=== PATIENT | male | born 1970 | race African-American/Black ===

== ENCOUNTER 2020-01-08 10:24 | Inpatient (IN) | payer OTHER ==
[2020-01-29 12:58] VITALS: BMI 57.7
[2020-02-01] MEDS ORDERED: Heparin 5,000 UNITS/ML VIAL ONE (12:15)
[2020-02-01] MEDS ORDERED: Ketorolac Tromethamine 30 MG/ML VIAL ONE (12:28)
[2020-02-01] MEDS ORDERED: Dexamethasone 20 MG/5 ML VIAL ONE (12:28)
[2020-02-01] MEDS ORDERED: PROPOFOL 200 MG/20 ML VIAL ONE (12:28)
[2020-02-01] MEDS ORDERED: Lidocaine 1% PF 5 ML VIAL ONE (12:28)
[2020-02-01] MEDS ORDERED: Rocuronium Bromide 10 MG/ML (10ML VIAL) ONE (12:28)
[2020-02-01] MEDS ORDERED: Glycopyrrolate 0.2 MG/ML 5 ML SYRINGE ONE (12:28)
[2020-02-01] MEDS ORDERED: Ondansetron PF 4 MG/2 ML Vial ONE (12:28)
[2020-02-01] MEDS ORDERED: Lidocaine 1% w/Epinephrine 1:100K 20 ML VIAL ONE (13:17)
[2020-02-01] MEDS ORDERED: Bupivacaine 0.25% HCL 30 ML VIAL ONE (13:17)
[2020-02-01] MEDS ORDERED: Fentanyl 100 MCG/2 ML VIAL ONE ×3 (13:22→16:02)
[2020-02-01] MEDS ORDERED: Lidocaine 2% Jelly 5 ML TUBE ONE (13:22)
[2020-02-01] MEDS ORDERED: HYDROmorphone 2 MG/ML VIAL SLOW IVP PRN (15:30)
[2020-02-01] MEDS ORDERED: Promethazine HCl 25 MG/ML VIAL SLOW IVP PRN (15:30)
[2020-02-01] MEDS ORDERED: Ondansetron HCl/PF 4 MG/2 ML Vial IVP PRN (15:30)
[2020-02-01] MEDS ORDERED: Promethazine HCl 25 MG/ML VIAL IM PRN ×3 (15:30→16:00)
[2020-02-01] MEDS ORDERED: Ondansetron PF 4 MG/2 ML Vial IVP PRN ×2 (15:33→16:00)
[2020-02-01] MEDS ORDERED: Dextrose 5% in Water 1,000 ML IV PRN (15:33)
[2020-02-01] MEDS ORDERED: Dextrose 50% Abboject 50 ML SYRINGE SLOW IVP PRN (15:33)
[2020-02-01] MEDS ORDERED: diphenhydrAMINE 50 MG/ML VIAL IVP PRN (15:33)
[2020-02-01] MEDS ORDERED: hydrALAZINE 20 MG/ML VIAL SLOW IVP PRN (15:33)
[2020-02-01] MEDS ORDERED: Methimazole 10 MG TAB PO SCH (15:33)
[2020-02-01] MEDS ORDERED: Hydrocodone-Acetamin 15 ML UDCUP PO PRN (15:33)
[2020-02-01] MEDS ORDERED: D5 1/2 NS w/20 mEq KCL 1,000 ML IV SCH (15:33)
[2020-02-01] MEDS ORDERED: diphenhydrAMINE 50 MG/ML VIAL IM/IV PRN (16:00)
[2020-02-01] MEDS ORDERED: Morphine Sulfate 100 MG in Dextrose 5% in Water 98 ML IV SCH (16:00)
[2020-02-01] MEDS ORDERED: diphenhydrAMINE 25 MG CAP PO PRN (16:00)
[2020-02-01] MEDS ORDERED: Labetalol HCl 100 MG/20 ML VIAL ONE (16:46)
[2020-02-01] MEDS ORDERED: hydrALAZINE 20 MG/ML VIAL ONE (17:09)
[2020-02-01] MEDS ORDERED: Ketorolac Tromethamine 30 MG/ML VIAL IVP SCH (18:00)
--- NOTE | 2020-02-01 19:37 | OP ---
DATE OF PROCEDURE: 02/01/2020 PREOPERATIVE DIAGNOSES: 1. Morbid obesity with a body mass index of 59. 2. Hypertension. POSTOPERATIVE DIAGNOSES: 1. Morbid obesity with a body mass index of 59. 2. Hypertension. PROCEDURE PERFORMED: 1. Laparoscopic sleeve gastrectomy with Ethicon reinforcement strips. 2. EGD ANESTHESIA: General. ESTIMATED BLOOD LOSS: Minimal. COMPLICATIONS: None. SPECIMEN: Stomach. FINDINGS: Normal postoperative EGD. DESCRIPTION OF PROCEDURE: The patient was taken to the operating room and laid supine on the operating room stable. After general anesthetic was obtained, arms and legs were double strapped to bariatric table. The abdomen was shaved, prepped and draped in a sterile fashion. There was difficulty with placement of the 38 bougie and multiple attempts were unsuccessful, so the EGD scope, which compared to the 36-Macedonian bougie, was passed under direct vision into the antrum of the stomach. The surgeon was then scrubbed in. Left subcostal Optiview trocar was placed in usual fashion without injury and high-flow pneumoperitoneum was obtained. Left and right abdominal 12 mm ports as well as right subcostal 5 mm port were placed under direct visualization. A 5 mm incision was made at the xiphoid and then Aniya was used to raise the liver off the GE junction. Short gastrics were taken down midbody of stomach to left nat of diaphragm. Left nat, posterior fundus, and angle of His were completely dissected. Short gastrics were taken down to a distance of 6 cm proximal to the pylorus. This EGD scope was advanced by anesthesia to the antrum. The light and insufflation had been turned off. First fire, the stapler was a green load, fired up at a distance of 6 cm proximal to the pylorus, and angled up towards the incisura. Care was taken to avoid being too close to the incisura. Multiple gold loads were then fired with Ethicon reinforcement strips all the way to the angle of His. Care was taken to not get too close to the EGD scope, which was used as a bougie. Stomach was completely transected at the angle of His. The stomach was removed from the left abdominal incision. This fascial defect was closed using GraNee needle and 0-Vicryl tie. The EGD scope was then connected and an insufflation was performed of the inside of the stomach, and the light was turned on. EGD scope revealed no stricture at the incisura and a good staple line without leak or bleeding. No involvement of the GE junction. No stricture. No stenosis of the sleeve. EGD scope was used to decompress the stomach. It was pulled and removed. There were no bleeders on the staple line and there was no bleeding in the abdomen. All port sites were infiltrated using local anesthetic. The Aniya retractor was removed under direct visualization without bleeding. All ports were removed under direct visualization without bleeding. Pneumoperitoneum was let down. Vicryl was used to close the fascial defect from the left abdominal incision. All incisions were irrigated and closed using 4-0 Monocryl and Dermabond. The patient was sent to Recovery in stable condition. All instrument counts, needle counts, and lap counts were correct. Job ID: [id number] MTDD
[2020-02-01] MEDS ORDERED: cloNIDine 0.1 MG TAB PO PRN (20:47)
[2020-02-01] MEDS ORDERED: Labetalol HCl 100 MG/20 ML VIAL SLOW IVP PRN (20:47)
[2020-02-01] MEDS ORDERED: Enoxaparin Sodium 40 MG/0.4 ML SYRINGE SC SCH (21:00)
[2020-02-01] MEDS: Ketorolac Tromethamine 30 MG/ML VIAL IVP SCH (21:54)
[2020-02-02] MEDS: Ketorolac Tromethamine 30 MG/ML VIAL IVP SCH ×2 (03:33→09:41)
[2020-02-02 05:34] LABS: #Lymphocytes 1.1 thou/uL (1.20-3.40); #Monocytes 0.5 thou/uL (0.11-0.59); #Neutrophils 8.7 thou/uL (1.40-6.50); %Basophils 0.2 % (0.0-1.0); %Eosinophils 0.1 % (0.0-10.0); %Lymphocytes 10.7 % (21.0-51.0); %Monocytes 5.2 % (0.0-10.0); %Neutrophils 83.9 % (42.0-75.0); Hemoglobin 13.6 g/dL (14.0-18.0); Mean Corpuscular HGB CONC 31.6 g/dL (32.0-36.0); Mean Corpuscular Hemoglobin 26.2 pg (27.0-31.0); Mean Corpuscular Volume 82.7 fL (78.0-98.0); Mean Platelet Volume 10.4 fL (7.4-10.4); Platelet Count 212 thou/uL (130-400); RBC Distribution Width 13.8 % (11.5-14.5); Red Blood Cell (RBC) Count 5.19 mill/uL (4.70-6.10); White Blood Cell (WBC) Count 10.3 thou/uL (4.8-10.8)
[2020-02-02 06:01] LABS: Anion Gap 15 mmol/L (10-20); BUN (Urea Nitrogen) 14 mg/dL (8.4-25.7); Calc. Creatinine Clearance 187 mL/min (70-130); Calcium 8.7 mg/dL (7.8-10.44); Carbon Dioxide 22 mmol/L (22-29); Chloride 104 mmol/L (98-107); Estimated GFR-MDRD 70; Glucose 126 mg/dL (70-105); Potassium 4.7 mmol/L (3.5-5.1); Sodium 136 mmol/L (136-145)
--- NOTE | 2020-02-02 06:52 | PDOC.GSPN ---
Surgery Progress Note: Subj - Subjective Patient reports: no new complaints, pain well controlled, tolerating liquids wel l Narrative: Mr. Kelly is a 49 year old male with a past medical history of hypertension and morbid obesity (BMI of 59), is post op day 1 from a laparoscopic sleeve gastrec kim. He reports feeling ok and has been up and walking. He had some nausea yesterday and vomited once, but this has since resolved. He is tolerating liquids well. He has passed gas but has not had a bowel movement. His pain is well controlled and is around a 3/10. He denies feeling feverish or having chills. Surgery Progress Note: Obj - Vital signs Vital signs: Vital Signs - Most Recent Temp Pulse Resp BP Pulse Ox 99.6 F 81 18 120/78 96 02/02/20 00:47 02/02/20 00:47 02/02/20 00:47 02/02/20 00:47 02/02/20 00:47 - Physical Exam General: no distress, obese Cardiovascular: regular rate and rhythm, no murmur Respiratory: clear to auscultation, breath sounds present Abdomen: soft, non tender, nondistended, positive bowel sounds Psychiatric: oriented to time, oriented to person, oriented to place, speech is normal Wound: healing well Surgery Progress Note: Results - Labs Result Diagrams: 02/02/20 04:54 02/02/20 04:54 Lab results: Laboratory Results - last 24 hr 02/02/20 02/02/20 04:54 04:54 WBC 10.3 RBC 5.19 Hgb 13.6 L Hct 42.9 MCV 82.7 MCH 26.2 L MCHC 31.6 L RDW 13.8 Plt Count 212 MPV 10.4 Neutrophils % 83.9 H Lymphocytes % 10.7 L Monocytes % 5.2 Eosinophils % 0.1 Basophils % 0.2 Neutrophils # 8.7 H Lymphocytes # 1.1 L Monocytes # 0.5 Eosinophils # 0.0 Basophils # 0.0 Sodium 136 Potassium 4.7 Chloride 104 Carbon Dioxide 22 Anion Gap 15 BUN 14 Creatinine 1.31 H Estimated GFR (MDRD) 70 Glucose 126 H Calcium 8.7 Surgery Progress Note: A/P - Problem (1) Status post laparoscopic sleeve gastrectomy Current Visit: Yes Code(s): Z98.84 - BARIATRIC SURGERY STATUS Status: Acute (2) Obesity Current Visit: Yes Code(s): E66.9 - OBESITY, UNSPECIFIED Status: Chronic - Plan Plan: I discussed with Mr. Kelly about going home today or stay another day, and he reports that he is feeling well enough to go home today. Pain and nausea under control with current medications. Continue to encourage him to ambulate, and will discuss potential discharge today.
[2020-02-02] MEDS ORDERED: cloNIDine 0.1 MG TAB PO SCH (09:00)
[2020-02-02] MEDS ORDERED: Pantoprazole 40 MG VIAL IVP SCH (09:00)
[2020-02-02 11:46] VITALS: BP 138/94; TEMP 97.5
--- NOTE | 2020-02-03 03:28 | DIS ---
DATE OF ADMISSION: 02/01/2020 DATE OF DISCHARGE: 02/02/2020 ADMITTING DIAGNOSES: Morbid obesity and hypertension. DISCHARGE DIAGNOSES: Morbid obesity and hypertension. PROCEDURE PERFORMED: Laparoscopic sleeve by Sade without complication. CONDITION ON DISCHARGE: Improved. STAFF: Sade. HOSPITAL COURSE: On postop day 1, the patient is doing well. He has tried a liquid diet without difficulty. He is ambulatory. No shortness of breath. He is discharged home today. He is to follow up in 2 weeks. He will call my office with any issues. Prescriptions for Lortab, elixir, Zofran, and pantoprazole already sent to his pharmacy. Job ID: [id number]
== END 2020-02-02 13:10 | disposition home or self-care (01) | DRG 621 ==
LOC: SURG A 02-01 10:45
PROVIDERS: ADMIT Surgery; ATTEND Surgery
PROC: 0DB64Z3 Excision of Stomach, Percutaneous Endoscopic Approach, Vertical (ICD-10-PCS; principal; 2020-02-01)
PROC: 0DJ08ZZ Inspection of Upper Intestinal Tract, Via Natural or Artificial Opening Endoscopic (ICD-10-PCS; 2020-02-01)
DX: E66.01 Morbid (severe) obesity due to excess calories (principal); Z68.43 Body mass index [BMI] 50.0-59.9, adult; I10 Essential (primary) hypertension; Z79.899 Other long term (current) drug therapy
CPT/HCPCS: 36415; 80048; 85025; 88307; 88312; 94760; C9113; J0360; J0690; J1644; J1650; J1885; J3010; J3480; S0020

== ENCOUNTER 2020-01-29 05:59 | Outpatient (CLI) | payer OTHER, SELFPAY ==
--- NOTE | 2020-01-29 15:33 | RAD ---
EXAM: Chest PA and lateral: HISTORY: Preoperative exam COMPARISON: None FINDINGS: Heart: Normal cardiac silhouette Aorta: Unremarkable Pulmonary vessels: Normal Costophrenic angles: Costophrenic angles are clear. Lungs: No consolidation or masses. Pneumothorax: No pneumothorax Osseous structures: No osseous abnormalities IMPRESSION: No acute cardiopulmonary process.
[2020-01-29 16:22] LABS: #Basophils 0.1 thou/uL (0.0-0.2); #Eosinphils 0.3 thou/uL (0.0-0.7); #Lymphocytes 2.7 thou/uL (1.20-3.40); #Monocytes 0.4 thou/uL (0.11-0.59); #Neutrophils 3.4 thou/uL (1.40-6.50); %Basophils 1.1 % (0.0-1.0); %Eosinophils 3.8 % (0.0-10.0); %Monocytes 5.9 % (0.0-10.0); %Neutrophils 50.2 % (42.0-75.0); Hemoglobin 14.4 g/dL (14.0-18.0); Mean Corpuscular HGB CONC 30.3 g/dL (32.0-36.0); Mean Corpuscular Hemoglobin 25.6 pg (27.0-31.0); Mean Corpuscular Volume 84.3 fL (78.0-98.0); Mean Platelet Volume 9.8 fL (7.4-10.4); Platelet Count 209 thou/uL (130-400); RBC Distribution Width 13.8 % (11.5-14.5); Red Blood Cell (RBC) Count 5.63 mill/uL (4.70-6.10); White Blood Cell (WBC) Count 6.8 thou/uL (4.8-10.8)
[2020-01-29 17:03] LABS: Hemoglobin A1c 5.9 % (4.0-6.0)
[2020-01-29 17:07] LABS: ALT (SGPT) 23 U/L (8-55); AST (SGOT) 16 U/L (5-34); Albumin 4.3 g/dL (3.5-5.0); Alkaline Phosphatase 81 U/L (40-110); Anion Gap 14 mmol/L (10-20); BUN (Urea Nitrogen) 25 mg/dL (8.4-25.7); Bilirubin, Total 0.2 mg/dL (0.2-1.2); Calc. Creatinine Clearance 0 mL/min (70-130); Calcium 9.2 mg/dL (7.8-10.44); Carbon Dioxide 23 mmol/L (22-29); Chloride 106 mmol/L (98-107); Estimated GFR-MDRD 64; Globulin 3.2 g/dL (2.4-3.5); Glucose 95 mg/dL (70-105); Potassium 4.6 mmol/L (3.5-5.1); Protein, Total 7.5 g/dL (6.0-8.3); Sodium 138 mmol/L (136-145)
[2020-01-30 14:48] LABS: SARS-CoV-2 MS2 Positive; SARS-CoV-2 N Gene Negative; SARS-CoV-2 S Gene Negative; SARS-CoV-2 by NAA Not Detected (NotDetected); SARS-CoV-2 orf1ab Negative
--- NOTE | 2020-02-01 15:45 | EKG ---
Test Reason : Blood Pressure : / mmHG Vent. Rate : 061 BPM Atrial Rate : 061 BPM P-R Int : 228 ms QRS Dur : 092 ms QT Int : 438 ms P-R-T Axes : 028 059 001 degrees QTc Int : 440 ms Sinus rhythm with 1st degree A-V block Low voltage QRS Cannot rule out Anterior infarct , age undetermined Abnormal ECG No previous ECGs available Confirmed by BETH PADGETT M.D. ([id number] on 02/01/2020 3:45:00 PM Referred By: MICHELLE Confirmed By:BETH PADGETT M.D.
== END 2020-01-29 06:00 | disposition home or self-care (01) ==
LOC: LABBT 05:59 → SCSRAD 06:00
PROVIDERS: ATTEND Surgery
DX: Z01.818 Encounter for other preprocedural examination (principal); Z20.828 Contact with and (suspected) exposure to other viral communicable diseases; E66.01 Morbid (severe) obesity due to excess calories
CPT/HCPCS: 71046; 80053; 83036; 85025; 87635; 93005; 93010; U0003

== ENCOUNTER 2020-10-06 11:03 | Inpatient (IN) | payer BC ==
[2020-10-07 13:41] VITALS: BMI 45.8
[2020-10-11] MEDS ORDERED: CEFAZOLIN 1 GM VIAL ONE (06:05)
[2020-10-11] MEDS ORDERED: Sodium Chloride 0.9% 100 ML ONE (06:05)
[2020-10-11] MEDS ORDERED: Tranexamic Acid 1,000 MG/10 ML VIAL ONE (06:05)
[2020-10-11] MEDS ORDERED: VANCOMYCIN 2 GRAM/400 ML BAG 2 GM in Premix Bag 1 BAG IVPB SCH (06:15)
[2020-10-11] MEDS ORDERED: Fentanyl 100 MCG/2 ML VIAL ONE ×6 (06:30→09:35)
[2020-10-11] MEDS ORDERED: Midazolam HCl 2 mg/2 ml Vial ONE (06:30)
[2020-10-11] MEDS ORDERED: Lidocaine 1% (PF) 30 ML VIAL ONE (06:30)
[2020-10-11] MEDS ORDERED: Zolpidem Tartrate 5 MG TAB PO PRN ×2 (06:55→07:30)
[2020-10-11] MEDS ORDERED: Acetaminophen 325 MG TAB PO PRN (06:55)
[2020-10-11] MEDS ORDERED: Promethazine HCl 25 MG/ML VIAL IM PRN ×3 (06:55→08:41)
[2020-10-11] MEDS ORDERED: Ondansetron PF 4 MG/2 ML Vial IVP PRN ×2 (06:55→07:30)
[2020-10-11] MEDS ORDERED: diphenhydrAMINE 25 MG CAP PO PRN (06:55)
[2020-10-11] MEDS ORDERED: HYDROcodone/Acetaminophen 10/325 mg Tablet PO PRN ×3 (06:55→07:30)
[2020-10-11] MEDS ORDERED: Fentanyl 100 MCG/2 ML VIAL IV PRN (07:18)
[2020-10-11] MEDS ORDERED: Ketorolac Tromethamine 30 MG/ML VIAL ONE (07:24)
[2020-10-11] MEDS ORDERED: Ondansetron PF 4 MG/2 ML Vial ONE (07:24)
[2020-10-11] MEDS ORDERED: ePHEDrine Sulfate 50 MG/10 ML VIAL ONE (07:24)
[2020-10-11] MEDS ORDERED: Bupivacaine HCl 0.5%/Epinephrine 1:200,000/PF 30 ml Vial ONE (07:24)
[2020-10-11] MEDS ORDERED: Dexamethasone 20 MG/5 ML VIAL ONE (07:24)
[2020-10-11] MEDS ORDERED: Labetalol HCl 100 MG/20 ML VIAL ONE ×2 (07:24→09:17)
[2020-10-11] MEDS ORDERED: PROPOFOL 200 MG/20 ML VIAL ONE (07:24)
[2020-10-11] MEDS ORDERED: Ropivacaine 2% HCl/PF (20 MG/10 ML VIAL) ONE (07:24)
[2020-10-11] MEDS ORDERED: Lidocaine 1% PF 5 ML VIAL ONE (07:24)
[2020-10-11] MEDS ORDERED: Metoclopramide HCl 10 MG/2 ML VIAL ONE (07:24)
[2020-10-11] MEDS ORDERED: traMADol HCl 50 MG TAB PO PRN (07:30)
[2020-10-11] MEDS ORDERED: Ropivacaine HCl/PF 250 ML in Premix Bag 1 BAG NERVE BLCK SCH (07:30)
[2020-10-11] MEDS ORDERED: Promethazine HCl 25 MG/ML VIAL SLOW IVP PRN (08:41)
[2020-10-11] MEDS ORDERED: Meperidine HCl/PF 25 MG/ML VIAL SLOW IVP PRN (08:41)
[2020-10-11] MEDS ORDERED: HYDROmorphone 2 MG/ML VIAL SLOW IVP PRN (08:41)
[2020-10-11] MEDS ORDERED: HYDROmorphone 2 MG/ML VIAL ONE ×2 (09:13→10:01)
[2020-10-11] MEDS ORDERED: hydrALAZINE 20 MG/ML VIAL ONE (09:37)
[2020-10-11] MEDS: Aspirin 81 mg Enteric Coated Tablet PO SCH ×2 (11:58→21:03)
[2020-10-11] MEDS: Multivitamin W/ Minerals 1 TAB PO SCH (11:58)
[2020-10-11] MEDS: HYDROcodone/Acetaminophen 10/325 mg Tablet PO PRN ×2 (12:03→17:39)
[2020-10-11] MEDS: Sodium Chloride 0.9% 1,000 ML IV SCH ×2 (12:03→17:36)
[2020-10-11] MEDS: Ketorolac Tromethamine 30 MG/ML VIAL IVP SCH ×2 (15:01→21:03)
[2020-10-11] MEDS: CEFAZOLIN 2 GM in Premix Bag 1 BAG IVPB SCH ×2 (15:01→21:03)
[2020-10-12] MEDS: Sodium Chloride 0.9% 1,000 ML IV SCH ×2 (03:16→12:06)
[2020-10-12] MEDS: Ketorolac Tromethamine 30 MG/ML VIAL IVP SCH ×3 (04:51→21:59)
[2020-10-12 05:38] LABS: Hemoglobin 11.3 g/dL (14.0-18.0); Mean Corpuscular HGB CONC 31.5 g/dL (32.0-36.0); Mean Corpuscular Hemoglobin 26.4 pg (27.0-31.0); Mean Corpuscular Volume 83.7 fL (78.0-98.0); Mean Platelet Volume 8.9 fL (7.4-10.4); Platelet Count 166 thou/uL (130-400); RBC Distribution Width 13.8 % (11.5-14.5); Red Blood Cell (RBC) Count 4.29 mill/uL (4.70-6.10); White Blood Cell (WBC) Count 11.2 thou/uL (4.8-10.8)
[2020-10-12] MEDS: Senokot S 8.6-50 MG TAB PO SCH ×2 (08:17→21:45)
[2020-10-12] MEDS: Aspirin 81 mg Enteric Coated Tablet PO SCH ×2 (08:17→20:32)
[2020-10-12] MEDS: Multivitamin W/ Minerals 1 TAB PO SCH (08:17)
[2020-10-12] MEDS: HYDROcodone/Acetaminophen 10/325 mg Tablet PO PRN ×3 (08:18→17:41)
[2020-10-12] MEDS ORDERED: cloNIDine 0.1 MG TAB PO SCH (09:00)
[2020-10-12] MEDS ORDERED: Methimazole 10 MG TAB PO SCH (09:00)
[2020-10-12] MEDS: traMADol HCl 50 MG TAB PO PRN (20:33)
[2020-10-13] MEDS: Sodium Chloride 0.9% 1,000 ML IV SCH ×2 (00:17→07:43)
[2020-10-13] MEDS: Ketorolac Tromethamine 30 MG/ML VIAL IVP SCH (06:04)
[2020-10-13] MEDS: traMADol HCl 50 MG TAB PO PRN (06:05)
[2020-10-13] MEDS ORDERED: Ferrous Gluconate 324 MG TAB PO SCH (09:00)
[2020-10-13] MEDS: Senokot S 8.6-50 MG TAB PO SCH (09:35)
[2020-10-13] MEDS: Aspirin 81 mg Enteric Coated Tablet PO SCH (09:35)
[2020-10-13] MEDS: Multivitamin W/ Minerals 1 TAB PO SCH (09:35)
[2020-10-13 11:04] VITALS: TEMP 98.5
[2020-10-13] MEDS: HYDROcodone/Acetaminophen 10/325 mg Tablet PO PRN (12:07)
[2020-10-13 14:29] VITALS: BP 132/82
== END 2020-10-13 14:33 | disposition home or self-care (01) | DRG 470 ==
LOC: SURG A 10-11 05:36 → SJJU 10-11 11:41
PROVIDERS: ADMIT Orthopaedic Surgery; ATTEND Orthopaedic Surgery
PROC: 0SRC0J9 Replacement of Right Knee Joint with Synthetic Substitute, Cemented, Open Approach (ICD-10-PCS; principal; 2020-10-11)
DX: M17.11 Unilateral primary osteoarthritis, right knee (principal); Z68.42 Body mass index [BMI] 45.0-49.9, adult; I10 Essential (primary) hypertension; G47.33 Obstructive sleep apnea (adult) (pediatric); E66.9 Obesity, unspecified; Z98.84 Bariatric surgery status
CPT/HCPCS: 36415; 85027; C1713; C1776; J0360; J0690; J1100; J1170; J1885; J2001; J2250; J2405; J2704; J2765; J2795; J3010; J3490

== ENCOUNTER 2020-10-06 14:07 | Outpatient (CLI) | payer BC ==
[2020-10-06 15:49] LABS: #Eosinphils 0.2 10x3/uL (0.0-0.5); #Monocytes 0.5 10x3/uL (0.0-1.1); #Neutrophils 4.2 10x3/uL (1.5-8.4); %Basophils 0.3 % (0.0-2.0); %Eosinophils 2.6 % (0.0-6.0); %Lymphocytes 32.5 % (18.0-47.0); %Neutrophils 57.3 % (40.0-75.0); Hemoglobin 12.4 g/dL (13.5-17.5); Mean Corpuscular HGB CONC 31.5 g/dL (32.0-36.0); Mean Corpuscular Hemoglobin 25.5 pg (27.0-33.0); Mean Corpuscular Volume 81.1 fl (81.2-95.1); Mean Platelet Volume 11.6 fl (7.4-10.4); Platelet Count 215 10x3/uL (150-450); RBC Distribution Width 15.3 % (11.5-14.5); Red Blood Cell (RBC) Count 4.86 10x6/uL (4.32-5.72); White Blood Cell (WBC) Count 7.3 10x3/uL (3.5-10.5)
[2020-10-06 15:50] LABS: Anion Gap 11 mmol/L (10-20); BUN (Urea Nitrogen) 25 mg/dL (8.4-25.7); Calc. Creatinine Clearance 0 mL/min (70-130); Calcium 9.2 mg/dL (7.8-10.44); Carbon Dioxide 25 mmol/L (22-29); Chloride 108 mmol/L (98-107); Glucose 86 mg/dL (70-105); Potassium 4.4 mmol/L (3.5-5.1); Sodium 140 mmol/L (136-145)
[2020-10-06 17:26] LABS: INR-International Normal Ratio 0.9; Prothrombin Time 10.3 sec (9.5-12.1)
[2020-10-07 03:22] LABS: SARS-CoV-2 NAA Rapid Test Not Detected (NotDetected)
== END 2020-10-06 14:08 | disposition home or self-care (01) ==
LOC: LABBT 14:07
PROVIDERS: ATTEND Orthopaedic Surgery
DX: Z01.818 Encounter for other preprocedural examination (principal); M17.11 Unilateral primary osteoarthritis, right knee
CPT/HCPCS: 80048; 85025; 85610; 87081; 87635; U0002; U0003; U0005